=== PATIENT | male | born 1960 | race Caucasian/White ===

== ENCOUNTER 2016-09-16 19:18 | Emergency (ER) | payer OTHER ==
--- NOTE | ~2016-09-16 | ER ---
PATIENT'S NAME: SEAN [facility] AGE: 56 Y [address] ROOM: [place] [id number] LOCATION: [facility] ADMIT DATE: 09/16/2016 ER/Outpatient Report DISCHARGE DATE: 09/16/2016 FAMILY PHYSICIAN: Physician, Unknown ATTENDING PHYSICIAN: Leslee Avalos Time of Arrival: 1920 hours. Time of Evaluation: 1923 hours. CHIEF COMPLAINT: Head laceration. HISTORY OF PRESENT ILLNESS: The patient reports approximately 1 hour prior to arrival, he leaned back and hit the left side of his scalp on the corner of a metal file cabinet. Denies any loss of consciousness. States that he did see stars, but did not pass out. He has not been nauseated, has not vomited. Denies any visual changes. ALLERGIES: HE HAS NO KNOWN ALLERGIES. MEDICATIONS: No current medications. IMMUNIZATIONS: Current. PAST MEDICAL HISTORY: Benign. PAST SURGERIES: Negative. SOCIAL HISTORY: Currently he is an inmate at the [facility]. Does smoke half pack per day and has for the last 20 years. REVIEW OF SYSTEMS: All negative other than those mentioned in the HPI. PHYSICAL EXAMINATION: VITAL SIGNS: He weighed 92.6 kg, blood pressure is 152/88, pulse is 65, respirations 20, and O2 saturations 100% on room air. Thuan Coma Scale is 15. GENERAL: He is awake, alert, and oriented x4. PATIENT'S NAME: SEAN [facility] AGE: 56 Y [address] ROOM: [place] [address] LOCATION: [facility] ADMIT DATE: 09/16/2016 ER/Outpatient Report DISCHARGE DATE: 09/16/2016 FAMILY PHYSICIAN: Physician, Unknown ATTENDING PHYSICIAN: Leslee Avalos SKIN: [place], warm, and dry. RESPIRATIONS: Even and nonlabored. HEENT: Pupils are equal reactive to light. Extraocular movement is intact. LUNGS: Lung sounds are clear throughout. HEART: Regular rate and rhythm. EXTREMITIES: Moves all extremities strongly and equally. EMERGENCY DEPARTMENT COURSE: The patient has approximately 0.5 cm laceration to the left temporal area. It was cleansed well with saline and closed with geoffrey x3. The patient tolerated the procedure well. He was given acetaminophen 1000 mg p.o. IMPRESSION: Laceration. PLAN: The patient will be transported back to the [facility]. He may wash his hair, he is to be careful while combing. [place] need to be removed in 7 to 10 days. He can have Tylenol or ibuprofen as needed for discomfort. Follow up with primary provider as needed. THAIS MEJIA APRN FOR MD MIRTA GANDARA/eveline /[id number] d: 09/17/168 t: 09/21/16 1819, OUTPATIENT REPORT
== END 2016-09-16 19:34 | disposition disaster alternative care site (69) ==
LOC: GMED 19:18 → GACC 19:18
PROC: 0HQ0XZZ Repair Scalp Skin, External Approach (ICD-10-PCS; principal; 2016-09-16)
DX: S01.81XA Laceration without foreign body of other part of head, initial encounter (principal); F17.210 Nicotine dependence, cigarettes, uncomplicated; W22.8XXA Striking against or struck by other objects, initial encounter